=== PATIENT | male | born 1965 | race Caucasian/White ===

== ENCOUNTER 2020-06-01 08:56 | Inpatient (IN) | payer BC ==
[2020-06-01] VITALS (11 sets, daily range): BP systolic 96–109; BP diastolic 60–66
[~2020-06-01] VITALS: Ht 180.3 cm; Wt 109.1 kg
[~2020-06-01 08:56] MED LIST: FLO0.4C PO
[2020-06-01 10:03] LABS: BASOPHILS % (AUTO) 0.3 % (0-1); EOSINOPHILS % (AUTO) 0.2 % (0-6); HEMOGLOBIN 14.8 g/dl (14.0-17.9); LYMPHOCYTES # (AUTO) 1.1 X10'3 (1.1-4.8); LYMPHOCYTES % (AUTO) 17.7 % (21-51); MEAN CORPUSCULAR HEMOGLOBIN 29.9 PG (27.0-31.0); MEAN CORPUSCULAR HGB CONC 33.7 g/dL (33.0-36.5); MEAN CORPUSCULAR VOLUME 88.7 FL (78-98); MEAN PLATELET VOLUME 8.1 FL (7.4-10.4); MONOCYTES # (AUTO) 0.4 X10'3 (0-0.9); MONOCYTES % (AUTO) 7.2 % (2-12); NEUTROPHILS # (AUTO) 4.5 X10'3 (1.8-7.7); NEUTROPHILS % (AUTO) 74.6 % (42-75); PLATELET COUNT 184 X10'3 (140-440); RED BLOOD COUNT 4.96 X10'6 (4.70-6.10); RED CELL DISTRIBUTION WIDTH 14.1 % (11.5-14.5)
[2020-06-01 10:20] LABS: ALANINE AMINOTRANSFERASE 31 U/L (12-78); ALBUMIN 3.9 G/DL (3.4-5.0); ALBUMIN/GLOBULIN RATIO 1.2 (1.1-1.5); ALKALINE PHOSPHATASE 46 IU/L (46-116); ANION GAP 9 (8-16); ASPARTATE AMINO TRANSFERASE 90 U/L (10-37); BILIRUBIN,TOTAL 0.8 MG/DL (0.1-1.0); BLOOD UREA NITROGEN 18 MG/DL (7-18); BUN/CREATININE RATIO 19.4 (5.4-32.0); CALCIUM 9.2 MG/DL (8.5-10.1); CHLORIDE 104 MMOL/L (99-107); CREATININE 0.93 MG/DL (0.60-1.10); GLUCOSE 89 MG/DL (70-104); POTASSIUM 4.1 MMOL/L (3.5-5.1); SODIUM 141 MMOL/L (135-145); TOTAL CARBON DIOXIDE 28.4 MMOL/L (24-32); TOTAL PROTEIN 7.1 G/DL (6.4-8.2); eGFR 84 ML/MIN
[2020-06-01] MEDS ORDERED: nitroGLYCERIN 0.4mg SUBLingual tab SL PRN (10:45)
[2020-06-01] MEDS ORDERED: aspirin 81mg tab.chew PO ONE (10:45)
[2020-06-01] MEDS ORDERED: heparin 10,000 units/1 ML INJ IV ONE ×2 (10:50→11:00)
[2020-06-01] MEDS ORDERED: heparin 10,000 units/1 ML INJ IV PRN (10:50)
[2020-06-01] MEDS ORDERED: heparin 25,000 UNIT/250ml bag 250 ML IV SCH (10:50)
[2020-06-01 11:20] LABS: PARTIAL THROMBOPLASTIN TIME 28 SECONDS (22-32)
[2020-06-01] MEDS ORDERED: acetaminophen 325mg tablet PO PRN ×2 (11:50)
[2020-06-01] MEDS ORDERED: morphine 2 MG/ML inj. syringe IV PRN ×2 (11:50)
[2020-06-01] MEDS ORDERED: HYDROcodone/acetaminophen 10/325mg tab PO PRN (11:50)
[2020-06-01] MEDS ORDERED: mag hydrox/Alum hydrox/simeth 30ml oral suspension PO PRN (11:50)
[2020-06-01] MEDS ORDERED: ondansetron/PF 4mg/2ml inj IV PRN (11:50)
[2020-06-01] MEDS ORDERED: HYDROcodone/acetaminophen 5mg/325mg tablet PO PRN (11:50)
[2020-06-01] MEDS ORDERED: magnesium hydroxide 30ml (MOM) UD suspension PO PRN (11:50)
[2020-06-01] MEDS: nitroGLYCERIN 0.4mg/hour patch TD SCH (11:53)
[2020-06-01 12:43] LABS: HEMOGLOBIN A1C 5.1 % (4.5-6.2)
[2020-06-01] MEDS ORDERED: DESV25TA2 PO (12:48)
[2020-06-01] MEDS ORDERED: SERT100T10 PO (12:48)
[2020-06-01] MEDS ORDERED: CLON-568 PO (12:48)
[2020-06-01] MEDS ORDERED: ZOLP12.543 PO (12:48)
[2020-06-01] MEDS ORDERED: ZIPR20CA12 PO (12:48)
[2020-06-01] MEDS ORDERED: midazolam 2 mg/2 ml injection ONE (15:32)
[2020-06-01] MEDS ORDERED: fentaNYL/PF 50MCG/1 ML 2ML syringe ONE (15:33)
[2020-06-01] MEDS ORDERED: LIDOcaine 1% (10mg/ml)w/preservative injection 20ml MDV ONE (15:33)
[2020-06-01] MEDS ORDERED: heparin 1,000unit/ml 10ml vial 10 ML ONE (15:33)
[2020-06-01] MEDS ORDERED: heparin 1,000 UNITS/NS 500ml 500 ML ONE (15:33)
[2020-06-01] MEDS ORDERED: iohexol 350MG/ML 100ml bottle IV ONE ×2 (15:33→16:19)
[2020-06-01] MEDS ORDERED: nitroGLYCERIN-Tridil 50MG/D5W 250 ML IV ONE (15:33)
--- NOTE | 2020-06-01 15:34 | NUR ---
Patient in room ED 13. I have received report from Dilcia CASTILLO and had the opportunity to ask questions and assume patient care.
[2020-06-01] MEDS ORDERED: ticagrelor 90mg tablet ONE (16:29)
--- NOTE | 2020-06-01 17:03 | NUR ---
patient's vitals are stable, right wrist has sensation, cap refill is less than 3 seconds, right hand is warm, bilat radial pulses are strong , patient is alert, oriented and appropriate
[2020-06-01] MEDS ORDERED: OXAZEpam 15mg capsule PO PRN (17:10)
[2020-06-01] MEDS ORDERED: proCHLORperazine 10 MG/2 ml inj IV PRN (17:10)
--- NOTE | 2020-06-01 18:00 | NUR ---
Patient in room PCU 3023. I have received report from uyen handley and had the opportunity to ask questions and assume patient care.
[2020-06-01] MEDS: metoprolol tartrate 25mg tablet PO SCH (20:14)
[2020-06-01] MEDS: ticagrelor 90mg tablet PO SCH (20:14)
--- NOTE | 2020-06-01 22:15 | NUR ---
patient had consitant critical troponin that is now trending down post catheterization. radial band is dc at this time as well
--- NOTE | 2020-06-02 00:56 | NUR ---
PAGER ID: [phone] MESSAGE: [id number] BEKA SALDAÑA PATIENT FROM INFORMATION SPECIALIST, MED REC NEEDS TO BE FINALIZED THANKS DARIUS CASTILLO [phone]
[2020-06-02 02:00] VITALS: BP 102/58
[2020-06-02 06:18] LABS: BASOPHILS % (AUTO) 0.3 % (0-1); EOSINOPHILS % (AUTO) 0.2 % (0-6); HEMATOCRIT 42.2 % (42.0-52.0); HEMOGLOBIN 14.4 g/dl (14.0-17.9); LYMPHOCYTES # (AUTO) 1.1 X10'3 (1.1-4.8); LYMPHOCYTES % (AUTO) 15.7 % (21-51); MEAN CORPUSCULAR HEMOGLOBIN 30.2 PG (27.0-31.0); MEAN CORPUSCULAR HGB CONC 34.1 g/dL (33.0-36.5); MEAN CORPUSCULAR VOLUME 88.7 FL (78-98); MEAN PLATELET VOLUME 8.4 FL (7.4-10.4); MONOCYTES # (AUTO) 0.6 X10'3 (0-0.9); NEUTROPHILS # (AUTO) 5.4 X10'3 (1.8-7.7); NEUTROPHILS % (AUTO) 74.8 % (42-75); PLATELET COUNT 160 X10'3 (140-440); RED BLOOD COUNT 4.76 X10'6 (4.70-6.10); RED CELL DISTRIBUTION WIDTH 14.2 % (11.5-14.5); WHITE BLOOD COUNT 7.2 X10'3 (4.5-11.0)
--- NOTE | 2020-06-02 06:25 | NUR ---
Problems reprioritized. Patient report given, questions answered & plan of care reviewed with Kayleigh RN.
[2020-06-02 06:41] LABS: ALBUMIN 3.6 G/DL (3.4-5.0); ANION GAP 10 (8-16); BLOOD UREA NITROGEN 14 MG/DL (7-18); BUN/CREATININE RATIO 16.1 (5.4-32.0); CALCIUM 8.7 MG/DL (8.5-10.1); CHLORIDE 104 MMOL/L (99-107); CHOL/HDL RATIO 2.9 (0.00-4.99); CHOLESTEROL 200 MG/DL (0-200); CREATININE 0.87 MG/DL (0.60-1.10); GLUCOSE 89 MG/DL (70-104); HDL CHOLESTEROL 69 MG/DL (35-60); LDL CHOLESTEROL 114 MG/DL (50-100); POTASSIUM 3.8 MMOL/L (3.5-5.1); SODIUM 139 MMOL/L (135-145); TOTAL CARBON DIOXIDE 24.7 MMOL/L (24-32); TRIGLYCERIDES 78 MG/DL (20-135); eGFR > 90 ML/MIN
[2020-06-02 07:34] VITALS: BP 114/66
[2020-06-02] MEDS ORDERED: ziprasidone 20mg capsule PO SCH (08:00)
[2020-06-02] MEDS: nitroGLYCERIN 0.4mg/hour patch TD SCH (08:00)
[2020-06-02] MEDS ORDERED: aspirin 81mg tablet.DR PO SCH (08:00)
[2020-06-02] MEDS ORDERED: nitroGLYCERIN 0.4mg/hour patch TD SCH (08:00)
[2020-06-02 08:45] VITALS: BP_SYST 114
[2020-06-02] MEDS: metoprolol tartrate 25mg tablet PO SCH (08:45)
[2020-06-02] MEDS: ticagrelor 90mg tablet PO SCH (08:45)
[2020-06-02] MEDS ORDERED: TICA90TA PO (09:05)
[2020-06-02] MEDS ORDERED: ASPI-1071 PO (09:05)
[2020-06-02] MEDS ORDERED: venlafaxine 25mg tablet PO SCH (09:13)
[2020-06-02] MEDS ORDERED: zolpidem 5mg tablet PO PRN (09:15)
[2020-06-02] MEDS ORDERED: sertraline 50mg tablet PO SCH (09:15)
[2020-06-02] MEDS ORDERED: ATOR40TA71 PO (09:50)
--- NOTE | 2020-06-02 11:12 | NUR ---
pt dc home in zero distress. ekg completed and on chart. IV have been dc with tip in tact. Gave pt coupon for Brilinta. DC instruction explained to pt in full, pt verbalized understanding of dc instructions.
[2020-06-02] MEDS ORDERED: clonazePAM 1mg tablet PO SCH (20:00)
[2020-06-03] MEDS ORDERED: DESVENLAFAXINE SUCCINATE PO SCH (08:00)
== END 2020-06-02 12:08 | disposition home or self-care (01) | DRG 247 ==
LOC: ER 08:57 → ED HOLD 11:49 → PCU 3S 16:38
PROVIDERS: ADMIT Internal Medicine; ATTEND Internal Medicine
PROC: 4A023N7 Measurement of Cardiac Sampling and Pressure, Left Heart, Percutaneous Approach (ICD-10-PCS; principal; 2020-06-01)
PROC: 027135Z Dilation of Coronary Artery, Two Arteries with Two Drug-eluting Intraluminal Devices, Percutaneous Approach (ICD-10-PCS; 2020-06-01)
PROC: B2111ZZ Fluoroscopy of Multiple Coronary Arteries using Low Osmolar Contrast (ICD-10-PCS; 2020-06-01)
PROC: B2151ZZ Fluoroscopy of Left Heart using Low Osmolar Contrast (ICD-10-PCS; 2020-06-01)
DX: I21.4 Non-ST elevation (NSTEMI) myocardial infarction (principal); F32.9 Major depressive disorder, single episode, unspecified; F41.9 Anxiety disorder, unspecified; I10 Essential (primary) hypertension; E78.5 Hyperlipidemia, unspecified; I25.9 Chronic ischemic heart disease, unspecified; N40.0 Benign prostatic hyperplasia without lower urinary tract symptoms; Z79.02 Long term (current) use of antithrombotics/antiplatelets; Z79.82 Long term (current) use of aspirin; Z79.899 Other long term (current) drug therapy; Z82.49 Family history of ischemic heart disease and other diseases of the circulatory system; Z87.442 Personal history of urinary calculi; Z98.84 Bariatric surgery status
CPT/HCPCS: 93306; 93458; C9600; C9601; 36415; 71045; 80048; 80053; 80061; 83036; 83880; 84484; 85025; 85610; 85730; 87081; 93005; 99152; 99153; A4620; A5120; A6258; C1725; C1751; C1769; C1874; C1894; G0378; J1644; J2001; J2250; J3010; J3490; Q9967

== ENCOUNTER 2020-07-16 22:33 | Inpatient (IN) | payer BC ==
[~2020-07-16] VITALS: Ht 180.3 cm; Wt 104.0 kg
[~2020-07-16 22:33] MED LIST changes: +ASPI-1071 PO; +ATOR40TA71 PO; +CLON-568 PO; +DESV25TA2 PO; -FLO0.4C PO; +SERT-434 PO; +TICA90TA PO; +ZIPR20CA12 PO; +ZOLP12.543 PO
[2020-07-16 23:12] LABS: BASOPHILS % (AUTO) 0.3 % (0-1); EOSINOPHILS % (AUTO) 0.2 % (0-6); HEMATOCRIT 44.6 % (42.0-52.0); HEMOGLOBIN 14.9 g/dl (14.0-17.9); LYMPHOCYTES # (AUTO) 1.2 X10'3 (1.1-4.8); LYMPHOCYTES % (AUTO) 14.1 % (21-51); MEAN CORPUSCULAR HEMOGLOBIN 29.8 PG (27.0-31.0); MEAN CORPUSCULAR HGB CONC 33.4 g/dL (33.0-36.5); MEAN CORPUSCULAR VOLUME 89.3 FL (78-98); MEAN PLATELET VOLUME 8.7 FL (7.4-10.4); MONOCYTES # (AUTO) 0.8 X10'3 (0-0.9); MONOCYTES % (AUTO) 9.2 % (2-12); NEUTROPHILS # (AUTO) 6.5 X10'3 (1.8-7.7); NEUTROPHILS % (AUTO) 76.2 % (42-75); PLATELET COUNT 163 X10'3 (140-440); RED BLOOD COUNT 4.99 X10'6 (4.70-6.10); WHITE BLOOD COUNT 8.6 X10'3 (4.5-11.0)
[2020-07-16 23:25] LABS: ALANINE AMINOTRANSFERASE 27 U/L (12-78); ALBUMIN 3.7 G/DL (3.4-5.0); ALKALINE PHOSPHATASE 57 IU/L (46-116); ANION GAP 9 (8-16); ASPARTATE AMINO TRANSFERASE 27 U/L (10-37); BILIRUBIN,TOTAL 1.1 MG/DL (0.1-1.0); BLOOD UREA NITROGEN 11 MG/DL (7-18); BUN/CREATININE RATIO 10.6 (5.4-32.0); CALCIUM 9.2 MG/DL (8.5-10.1); CHLORIDE 103 MMOL/L (99-107); CREATININE 1.04 MG/DL (0.60-1.10); GLUCOSE 111 MG/DL (70-104); LIPASE 77 U/L (73-393); POTASSIUM 3.5 MMOL/L (3.5-5.1); SODIUM 138 MMOL/L (135-145); TOTAL CARBON DIOXIDE 26.3 MMOL/L (24-32); TOTAL PROTEIN 7.3 G/DL (6.4-8.2); eGFR 74 ML/MIN
[2020-07-16 23:28] LABS: CLARITY,URINE CLEAR (Clear); COLOR,URINE YELLOW (Yellow); GLUCOSE, URINE NEGATIVE (Neg); KETONES,URINE 15 mg/dl (Neg); LEUKOCYTE ESTERASE ,URINE NEGATIVE (Neg); NITRITES, URINE NEGATIVE (Neg); OCCULT BLOOD,URINE NEGATIVE (Neg); PROTEIN,URINE NEGATIVE (Neg); UA COLLECTION TYPE CLN CATCH MIDSTREAM; UROBILINOGEN,URINE 0.2 E.U/dL (0.2-1.0)
[2020-07-17] MEDS ORDERED: ondansetron/PF 4mg/2ml inj IV ONE ×2 (00:20→02:05)
[2020-07-17] MEDS ORDERED: mag hydrox/Alum hydrox/simeth 30ml oral suspension PO ONE (00:20)
[2020-07-17] MEDS ORDERED: famotidine/PF 10 mg/ml inj IV ONE (00:20)
[2020-07-17] MEDS ORDERED: LIDOcaine Viscous 15ml cup MM ONE (00:20)
[2020-07-17] MEDS ORDERED: morphine 4 MG/ML inj SYRINge IV ONE ×3 (01:00→04:10)
[2020-07-17] MEDS ORDERED: piperacillin/tazo 3.375gm/50ml 50 ML IV ONE (04:05)
[2020-07-17] MEDS ORDERED: PANT40TA54 PO (04:30)
[2020-07-17] MEDS ORDERED: GABA-530 PO (04:30)
[2020-07-17] MEDS ORDERED: potassium Cl 40MEQ/1/2NS 520ml 520 ML IV PRN ×2 (04:40)
[2020-07-17] MEDS: normal saline 1000ml 1,000 ML IV SCH ×2 (04:40→14:40)
[2020-07-17] MEDS ORDERED: zolpidem 5mg tablet PO PRN (04:50)
[2020-07-17] MEDS: metoclopramide 5 mg/ml inj IV PRN ×2 (06:41→13:05)
[2020-07-17] MEDS: morphine 2 MG/ML inj. syringe IV PRN ×6 (06:41→23:31)
[2020-07-17] MEDS: atorvastatin 20mg tablet PO SCH (08:00)
[2020-07-17] MEDS: pantoprazole 40mg Tablet.DR PO SCH (08:00)
[2020-07-17] MEDS ORDERED: DESVENLAFAXINE SUCCINATE PO SCH (08:00)
[2020-07-17] MEDS: gabapentin 100mg capsule PO SCH ×3 (08:00→20:05)
[2020-07-17] MEDS: ziprasidone 20mg capsule PO SCH (08:00)
[2020-07-17] MEDS: clonazePAM 1mg tablet PO SCH ×2 (08:00→20:05)
[2020-07-17] MEDS: sertraline 50mg tablet PO SCH ×2 (08:00→20:05)
[2020-07-17] MEDS: K and/or MAG REPLACEMENT MC SCH ×2 (08:00→20:00)
[2020-07-17] MEDS: aspirin 81mg tablet.DR PO SCH (08:00)
[2020-07-17] MEDS ORDERED: BUPIVAcaine/PF 2.5 mg/ml (0.25%) 30ml vial ONE (08:38)
--- NOTE | 2020-07-17 08:53 | NUR ---
Called report to Katty in Recovery.
[2020-07-17] MEDS: ondansetron/PF 4mg/2ml inj IV PRN ×3 (10:09→20:23)
--- NOTE | 2020-07-17 10:50 | NUR ---
Pt is resting quietly with eyes closed. Respirations unlabored. NAD
--- NOTE | 2020-07-17 10:54 | NUR ---
Tried to call report to PCU. Told the RN is finishing a med pass and she will call me right back.
--- NOTE | 2020-07-17 11:05 | NUR ---
Tried to call and get report, nurse on break, will call me when she gets back in 10 minutes.
--- NOTE | 2020-07-17 11:20 | NUR ---
Patient in room ED 8. I have received report from ANNA Blackmon and had the opportunity to ask questions and awaiting pt's arrival.
[2020-07-17 11:30] VITALS: BP 160/86
--- NOTE | 2020-07-17 11:33 | NUR ---
Patient arrived from ED, ambulated from wheelchair to bed with standby assist. Alert and oriented to room, call light within reach, BLL, SRx2, non skid socks on. First set of vitals complete, MRSA swab collected, tele monitor placed on patient. All pt needs met at this time.
[2020-07-17] MEDS: piperacillin/tazo 3.375gm/50ml 50 ML IV SCH ×2 (13:45→20:14)
[2020-07-17 15:00] VITALS: BP 142/85
[2020-07-17 18:00] VITALS: BP 143/84
--- NOTE | 2020-07-17 18:30 | NUR ---
Patient in room PCU 3017. I have received report from Florence Dominique RN and had the opportunity to ask questions and assume patient care.
--- NOTE | 2020-07-17 18:41 | NUR ---
Problems reprioritized. Patient report given, questions answered & plan of care reviewed with ANNA Anand. Pt sitting up in bed resting comfortably at change of shift. All pt needs met at this time.
[2020-07-17 19:00] VITALS: BP 111/66
[2020-07-17] MEDS: ticagrelor 90mg tablet PO SCH (20:06)
[2020-07-17] MEDS: venlafaxine 25mg tablet PO SCH (20:12)
[2020-07-17 22:00] VITALS: BP 118/85
[2020-07-17] MEDS ORDERED: acetaminophen 325mg tablet PO ONE (23:00)
[2020-07-18] VITALS (21 sets, daily range): BP systolic 111–153; BP diastolic 69–85
[2020-07-18] MEDS: normal saline 1000ml 1,000 ML IV SCH ×3 (01:30→20:28)
[2020-07-18] MEDS: piperacillin/tazo 3.375gm/50ml 50 ML IV SCH ×3 (03:31→23:29)
[2020-07-18] MEDS: morphine 2 MG/ML inj. syringe IV PRN (04:57)
--- NOTE | 2020-07-18 06:19 | NUR ---
Problems reprioritized. Patient report given, questions answered & plan of care reviewed with ANNA Anand.
--- NOTE | 2020-07-18 06:19 | NUR ---
Patient in room PCU 3008. I have received report from Kika CATSILLO and had the opportunity to ask questions and assume patient care. Pt resting in bed at this time, offers no complaints, will continue to monitor.
--- NOTE | 2020-07-18 06:24 | NUR ---
Problems reprioritized. Patient report given, questions answered & plan of care reviewed with Emily CASTILLO.
[2020-07-18 06:42] LABS: BASOPHILS % (AUTO) 0.1 % (0-1); EOSINOPHILS % (AUTO) 0.2 % (0-6); HEMATOCRIT 44.4 % (42.0-52.0); HEMOGLOBIN 14.8 g/dl (14.0-17.9); LYMPHOCYTES # (AUTO) 0.8 X10'3 (1.1-4.8); LYMPHOCYTES % (AUTO) 6.9 % (21-51); MEAN CORPUSCULAR HEMOGLOBIN 29.9 PG (27.0-31.0); MEAN CORPUSCULAR HGB CONC 33.4 g/dL (33.0-36.5); MEAN CORPUSCULAR VOLUME 89.5 FL (78-98); MEAN PLATELET VOLUME 8.7 FL (7.4-10.4); MONOCYTES # (AUTO) 1.1 X10'3 (0-0.9); MONOCYTES % (AUTO) 9.6 % (2-12); NEUTROPHILS # (AUTO) 9.9 X10'3 (1.8-7.7); NEUTROPHILS % (AUTO) 83.2 % (42-75); PLATELET COUNT 180 X10'3 (140-440); RED BLOOD COUNT 4.96 X10'6 (4.70-6.10); RED CELL DISTRIBUTION WIDTH 13.9 % (11.5-14.5)
[2020-07-18 06:56] LABS: ALANINE AMINOTRANSFERASE 138 U/L (12-78); ALBUMIN 3.1 G/DL (3.4-5.0); ALBUMIN/GLOBULIN RATIO 0.8 (1.1-1.5); ALKALINE PHOSPHATASE 123 IU/L (46-116); ANION GAP 10 (8-16); ASPARTATE AMINO TRANSFERASE 147 U/L (10-37); BILIRUBIN,TOTAL 1.4 MG/DL (0.1-1.0); BLOOD UREA NITROGEN 12 MG/DL (7-18); BUN/CREATININE RATIO 12.4 (5.4-32.0); CHLORIDE 103 MMOL/L (99-107); CREATININE 0.97 MG/DL (0.60-1.10); GLUCOSE 102 MG/DL (70-104); POTASSIUM 4.1 MMOL/L (3.5-5.1); SODIUM 139 MMOL/L (135-145); TOTAL CARBON DIOXIDE 26.5 MMOL/L (24-32); eGFR 80 ML/MIN
[2020-07-18] MEDS: aspirin 81mg tablet.DR PO SCH (08:00)
[2020-07-18] MEDS: ticagrelor 90mg tablet PO SCH ×2 (08:00→20:24)
[2020-07-18] MEDS: K and/or MAG REPLACEMENT MC SCH ×2 (08:00→20:00)
--- NOTE | 2020-07-18 08:10 | NUR ---
SPOKE WITH OR AND WAS INSTRUCTED TO HOLD THE BRILINTA AND ASPIRIN FOR THIS AM THE PT IS GOING TO SURGERY.
[2020-07-18] MEDS: venlafaxine 25mg tablet PO SCH ×3 (08:17→20:24)
[2020-07-18] MEDS: gabapentin 100mg capsule PO SCH ×3 (08:18→20:24)
[2020-07-18] MEDS: atorvastatin 20mg tablet PO SCH (08:18)
[2020-07-18] MEDS: pantoprazole 40mg Tablet.DR PO SCH (08:18)
[2020-07-18] MEDS: sertraline 50mg tablet PO SCH ×2 (08:19→20:24)
[2020-07-18] MEDS: ziprasidone 20mg capsule PO SCH (08:19)
[2020-07-18] MEDS: clonazePAM 1mg tablet PO SCH ×2 (08:19→20:24)
[2020-07-18] MEDS ORDERED: sevoflurane 250ml liquid IH ONE (11:25)
[2020-07-18] MEDS ORDERED: meperidine/PF 25mg/ml syringe IV PRN ×2 (11:30)
[2020-07-18] MEDS ORDERED: morphine 4 MG/ML inj SYRINge IV PRN (11:30)
[2020-07-18] MEDS ORDERED: midazolam 1 mg/ML 2ml injection ONE (11:30)
[2020-07-18] MEDS ORDERED: fentaNYL/PF 50MCG/1 ML 2ML syringe ONE ×2 (11:30→11:50)
[2020-07-18] MEDS ORDERED: proCHLORperazine 10 MG/2 ml inj IV PRN (11:30)
[2020-07-18] MEDS ORDERED: ringers solution, lacted 1,000 ML IV SCH (11:30)
[2020-07-18] MEDS ORDERED: ondansetron/PF 4mg/2ml inj IV PRN (11:30)
[2020-07-18] MEDS ORDERED: morphine 2 MG/ML inj. syringe IV PRN (11:30)
[2020-07-18] MEDS ORDERED: propofol inj 20 ML IV ONE (11:32)
[2020-07-18] MEDS ORDERED: LIDOcaine 2% (20mg/ml) 5ml vial ONE (11:32)
[2020-07-18] MEDS ORDERED: rocuronium 10mg/ml inj IV ONE (11:32)
[2020-07-18] MEDS ORDERED: glycopyrrolate 0.2mg/ml inj ONE (12:37)
[2020-07-18] MEDS ORDERED: neostigmine methylsulfate 1 MG/ML 10ml vial ONE (12:37)
[2020-07-18] MEDS ORDERED: dexamethasone sod phosphate 4mg/ml inj. ONE (12:37)
[2020-07-18] MEDS ORDERED: ondansetron/PF 4mg/2ml inj ONE (12:37)
--- NOTE | 2020-07-18 13:35 | NUR ---
Received from OR via , accompanied by Anesthesiologist DR SHULTZ and report given by Anesthesiolgist. PT IS SLEEPING BUT MOANING WITH PAIN. DEMEROL 25MG GIVEN FOR PAIN, SCDS, JUWAN DRAIN WITH SANQ DISCHARGE, ISLAND DRESSING AROUND JUWAN, PIV RIGHT HAND 20G WITH LR @ 100ML/HR, SKIN WARM AND PINK, VSS.
[2020-07-18] MEDS: meperidine/PF 25mg/ml syringe IV PRN ×2 (14:32→14:52)
--- NOTE | 2020-07-18 14:40 | NUR ---
PER PATIENT REQUEST, CALLED WITH UPDATE REGARDING SURGERY.
--- NOTE | 2020-07-18 14:41 | NUR ---
Report called to receiving nurse. Transferred via BED Belongings . Special Issues communicated to receiving nurse. PT IS SLEEPY BUT WAKES EASILY. SKIN WARM AND PINK, VSS, MOD PAIN CONTROLLED WITH DEMEROL, ISLAND DRESSING ON ABD CD, JUWAN DRAIN WITH MIN SANQ DISCHARGE, SCD'S, PIV PATENT, GABINO ICE CHIPS, PT MEETS DISCHARGE CRITERIA.
--- NOTE | 2020-07-18 18:06 | NUR ---
Orientee documentation: I have reviewed and agree with interventions, assessments performed and documented by Gifty CASTILLO. [place]ee Medication Administration: For this medication-pass time frame, medication were reviewed, dispensed, administered and documented per hospital policy by Gifty CASTILLO.
--- NOTE | 2020-07-18 18:10 | NUR ---
Problems reprioritized. Patient report given, questions answered & plan of care reviewed with Ferny CASTILLO.
[2020-07-18] MEDS: HYDROcodone/acetaminophen 10/325mg tab PO PRN (21:45)
[2020-07-19 02:00] VITALS: BP 117/67
[2020-07-19] MEDS: HYDROcodone/acetaminophen 10/325mg tab PO PRN ×3 (02:05→20:00)
[2020-07-19 06:00] VITALS: BP 115/66
--- NOTE | 2020-07-19 06:32 | NUR ---
Patient in room PCU 3008. I have received report from Ferny CASTILLO and had the opportunity to ask questions and assume patient care.
--- NOTE | 2020-07-19 06:33 | NUR ---
Problems reprioritized. Patient report given, questions answered & plan of care reviewed with HT. Addendum: 07/19/20 at 0633 by Clay Wright RN Amended: Links added.
[2020-07-19] MEDS: normal saline 1000ml 1,000 ML IV SCH ×2 (06:49→16:49)
[2020-07-19 07:00] LABS: BASOPHILS % (AUTO) 0 % (0-1); EOSINOPHILS % (AUTO) 0 % (0-6); HEMATOCRIT 37.2 % (42.0-52.0); HEMOGLOBIN 12.5 g/dl (14.0-17.9); LYMPHOCYTES # (AUTO) 0.7 X10'3 (1.1-4.8); LYMPHOCYTES % (AUTO) 6.1 % (21-51); MEAN CORPUSCULAR HEMOGLOBIN 29.7 PG (27.0-31.0); MEAN CORPUSCULAR HGB CONC 33.6 g/dL (33.0-36.5); MEAN CORPUSCULAR VOLUME 88.4 FL (78-98); MEAN PLATELET VOLUME 8.9 FL (7.4-10.4); MONOCYTES # (AUTO) 0.7 X10'3 (0-0.9); MONOCYTES % (AUTO) 6.5 % (2-12); NEUTROPHILS % (AUTO) 87.4 % (42-75); PLATELET COUNT 182 X10'3 (140-440); RED BLOOD COUNT 4.21 X10'6 (4.70-6.10); WHITE BLOOD COUNT 11.4 X10'3 (4.5-11.0)
[2020-07-19 07:25] LABS: ALANINE AMINOTRANSFERASE 108 U/L (12-78); ALBUMIN 2.6 G/DL (3.4-5.0); ALBUMIN/GLOBULIN RATIO 0.7 (1.1-1.5); ALKALINE PHOSPHATASE 104 IU/L (46-116); ANION GAP 11 (8-16); ASPARTATE AMINO TRANSFERASE 98 U/L (10-37); BILIRUBIN,TOTAL 0.7 MG/DL (0.1-1.0); BLOOD UREA NITROGEN 16 MG/DL (7-18); BUN/CREATININE RATIO 19.3 (5.4-32.0); CHLORIDE 105 MMOL/L (99-107); CREATININE 0.83 MG/DL (0.60-1.10); GLUCOSE 109 MG/DL (70-104); POTASSIUM 4.7 MMOL/L (3.5-5.1); SODIUM 143 MMOL/L (135-145); TOTAL CARBON DIOXIDE 26.6 MMOL/L (24-32); TOTAL PROTEIN 6.2 G/DL (6.4-8.2); eGFR > 90 ML/MIN
[2020-07-19] MEDS: piperacillin/tazo 3.375gm/50ml 50 ML IV SCH ×3 (07:36→23:55)
[2020-07-19] MEDS: ticagrelor 90mg tablet PO SCH ×2 (07:38→19:58)
[2020-07-19] MEDS: venlafaxine 25mg tablet PO SCH ×3 (07:38→19:58)
[2020-07-19] MEDS: aspirin 81mg tablet.DR PO SCH (07:38)
[2020-07-19] MEDS: gabapentin 100mg capsule PO SCH ×3 (07:39→19:58)
[2020-07-19] MEDS: atorvastatin 20mg tablet PO SCH (07:39)
[2020-07-19] MEDS: ziprasidone 20mg capsule PO SCH (07:39)
[2020-07-19] MEDS: pantoprazole 40mg Tablet.DR PO SCH (07:40)
[2020-07-19] MEDS: sertraline 50mg tablet PO SCH ×2 (07:40→20:01)
[2020-07-19] MEDS: clonazePAM 1mg tablet PO SCH ×2 (07:40→19:57)
[2020-07-19] MEDS: K and/or MAG REPLACEMENT MC SCH ×2 (08:00→20:00)
[2020-07-19 11:00] VITALS: BP 108/64
[2020-07-19 15:00] VITALS: BP 116/70
[2020-07-19] MEDS ORDERED: magnesium hydroxide 30ml (MOM) UD suspension PO ONE (16:45)
[2020-07-19 18:00] VITALS: BP 136/80
--- NOTE | 2020-07-19 18:24 | NUR ---
Problems reprioritized. Patient report given, questions answered & plan of care reviewed with Arabella CASTILLO
--- NOTE | 2020-07-19 18:25 | NUR ---
Orientee documentation: I have reviewed and agree with interventions, assessments performed and documented by Gifty CASTILLO .Orietnexenia Medication Administration: For this medication-pass time frame, medication were reviewed, dispensed, administered and documented per hospital policy by Gifty CASTILLO .
--- NOTE | 2020-07-19 18:27 | NUR ---
Patient in room PCU 3017. I have received report from Emily CASTILLO and Gifty RN and had the opportunity to ask questions and assume patient care.
[2020-07-19] MEDS: lactobacillus rhamnosus 10,000 MMU CELLS/CAPSULE PO SCH (19:58)
[2020-07-19 22:00] VITALS: BP 140/78
[2020-07-20] MEDS: HYDROcodone/acetaminophen 10/325mg tab PO PRN ×3 (01:10→12:27)
[2020-07-20] MEDS: normal saline 1000ml 1,000 ML IV SCH ×2 (02:19→12:40)
[2020-07-20 06:37] LABS: BASOPHILS % (AUTO) 0.2 % (0-1); EOSINOPHILS # (AUTO) 0.1 X10'3 (0-0.9); EOSINOPHILS % (AUTO) 0.7 % (0-6); HEMATOCRIT 35.6 % (42.0-52.0); LYMPHOCYTES # (AUTO) 1.1 X10'3 (1.1-4.8); LYMPHOCYTES % (AUTO) 16.2 % (21-51); MEAN CORPUSCULAR HEMOGLOBIN 29.9 PG (27.0-31.0); MEAN CORPUSCULAR HGB CONC 33.8 g/dL (33.0-36.5); MEAN CORPUSCULAR VOLUME 88.6 FL (78-98); MEAN PLATELET VOLUME 8.4 FL (7.4-10.4); MONOCYTES # (AUTO) 0.5 X10'3 (0-0.9); MONOCYTES % (AUTO) 7.4 % (2-12); NEUTROPHILS # (AUTO) 5.3 X10'3 (1.8-7.7); NEUTROPHILS % (AUTO) 75.5 % (42-75); PLATELET COUNT 177 X10'3 (140-440); RED BLOOD COUNT 4.01 X10'6 (4.70-6.10); RED CELL DISTRIBUTION WIDTH 13.9 % (11.5-14.5); WHITE BLOOD COUNT 7.1 X10'3 (4.5-11.0)
--- NOTE | 2020-07-20 06:37 | NUR ---
Problems reprioritized. Patient report given, questions answered & plan of care reviewed with Stephany CASTILLO.
[2020-07-20 07:00] LABS: ALANINE AMINOTRANSFERASE 89 U/L (12-78); ALBUMIN 2.5 G/DL (3.4-5.0); ALBUMIN/GLOBULIN RATIO 0.7 (1.1-1.5); ALKALINE PHOSPHATASE 93 IU/L (46-116); ANION GAP 8 (8-16); ASPARTATE AMINO TRANSFERASE 66 U/L (10-37); BILIRUBIN,TOTAL 0.5 MG/DL (0.1-1.0); BLOOD UREA NITROGEN 16 MG/DL (7-18); CALCIUM 8.5 MG/DL (8.5-10.1); CHLORIDE 108 MMOL/L (99-107); CREATININE 0.89 MG/DL (0.60-1.10); GLUCOSE 84 MG/DL (70-104); POTASSIUM 3.7 MMOL/L (3.5-5.1); SODIUM 143 MMOL/L (135-145); TOTAL CARBON DIOXIDE 27.1 MMOL/L (24-32); TOTAL PROTEIN 6.1 G/DL (6.4-8.2); eGFR 88 ML/MIN
[2020-07-20 07:01] VITALS: BP 129/80
[2020-07-20] MEDS: K and/or MAG REPLACEMENT MC SCH (08:00)
[2020-07-20] MEDS ORDERED: HYDR-3972 PO (08:30)
[2020-07-20] MEDS ORDERED: AMOX-580 PO (08:30)
[2020-07-20] MEDS: aspirin 81mg tablet.DR PO SCH (09:04)
[2020-07-20] MEDS: atorvastatin 20mg tablet PO SCH (09:04)
[2020-07-20] MEDS: ziprasidone 20mg capsule PO SCH (09:05)
[2020-07-20] MEDS: pantoprazole 40mg Tablet.DR PO SCH (09:05)
[2020-07-20] MEDS: ticagrelor 90mg tablet PO SCH (09:05)
[2020-07-20] MEDS: piperacillin/tazo 3.375gm/50ml 50 ML IV SCH ×2 (09:05→16:00)
[2020-07-20] MEDS: venlafaxine 25mg tablet PO SCH ×2 (09:06→12:26)
[2020-07-20] MEDS: lactobacillus rhamnosus 10,000 MMU CELLS/CAPSULE PO SCH (09:06)
[2020-07-20] MEDS: clonazePAM 1mg tablet PO SCH (09:06)
[2020-07-20] MEDS: sertraline 50mg tablet PO SCH (09:06)
[2020-07-20] MEDS: gabapentin 100mg capsule PO SCH ×2 (09:07→12:26)
[2020-07-20] MEDS ORDERED: pneumococcal 23-VAL P-sac vacc 25 mcg/0.5ml vial IMVAC ONE (10:00)
[2020-07-20] MEDS ORDERED: FLU VACC QS2020-21(6MOS UP)/PF 60 MCG/0.5 ML SYRINGE IMVAC ONE (10:00)
[2020-07-20 11:13] VITALS: BP 129/72
--- NOTE | 2020-07-20 11:15 | NUR ---
Received stack of paperwork from [facility] listing multiple minor and major interactions between pt's medications. Called [facility]. Spoke with Toan - pharmacist. States he wants MD to review list of interactions and then call him before he can approve medications for discharge. Notified MD Pérez by cell phone. states he will come to floor shortly.
--- NOTE | 2020-07-20 12:29 | NUR ---
Discontinued JUWAN drain. Patient tolerated well. Applied steristrips and optifoam. Pain medication administered immediately after.
[2020-07-20] MEDS ORDERED: ondansetron 4mg rapidly disintigrating tab PO PRN (13:20)
--- NOTE | 2020-07-20 13:56 | NUR ---
Called hospitalist to remind him that pharmacy is requiring verification of discharge medication orders r/t major interactions with medications. MD stated "talk to your recharger. there are no interactions from the medications I ordered for the pt. there are only interactions from the medications that the psychiatric doctor ordered and that needs to be addressed with the psychiatrist." Spoke with pharmacist at [facility] again and [facility] pharmacist refusing to fill discharge medications. Provided pharmacist with MD contact, after discussing with quantitative analyst developer. Will contact pharmacist to see is issue has been solved at a later time.
[2020-07-20 15:00] VITALS: BP 108/67
--- NOTE | 2020-07-20 15:00 | NUR ---
Pt. knows to p/u medications at preferred pharmacy.
--- NOTE | 2020-07-20 15:00 | NUR ---
Discharge paperwork and medications discussed with patient. Discussed possible interactions and to further discuss with his psychiatrist. Discussed possible [facility] [place] with pt. Discussed f/u appointments needed with PCP and Gustavo. Contact address and phone number provided for Rick to pt. Home meds returned from pharmacy storage to patient. iv DC'd, cannula intact, no s/sx bleeding noted. JUWAN drain DC'd already. Tele removed and returned. Pt. dressed himself and gathered his belongings to take with him. Called his for a ride. Gave education on post-op care, incision care, and post-op restrictions. Pt. had many opportunities to ask questions but had none. Advise not to drive. Escorted in a w/c by a staff member downstairs to his 's vehicle to discharge home.
--- NOTE | 2020-07-20 15:33 | NUR ---
Hospitalist did call pharmacist and verification that it was ok to discharge medications and theat medications will be filled was given to RN.
--- NOTE | 2020-07-21 09:41 | NUR ---
CASE MANAGEMENT DISCHARGE FOLLOW UP: T/c to pt, no answer, left message requesting callback. Addendum: 07/21/20 at 1043 by Gudelia De La Cruz RN [phone] Received voicemail from patient. Returned call. Pt reports that he is feeling a little better, lost his voice a little. Voice is harsh but becomes easier to understand the more patient talks. Pt denies CP, SOB, fevers/chills, s/sx of infection, bleeding. States pain under control with [place]. States that yesterday he had some pain in his R should upon inspiration, however it is gone now. Verbalizes understanding of s/sx requiring further evaluation/emergent assistance. Verbalizes understanding of new and current medications. Verbalizes compliance with MD discharge instructions. Verbalizes understanding of the importance in making/keeping follow-up appointments, has f/u appointment scheduled with PCP. Will call to schedule f/u appointment with Dr Leung. Upon pt inquiry, advised pt to ask Dr Leung about when it is safe to return to work, pt verbalizes understanding. States no further questions/concerns at this time.
== END 2020-07-20 16:15 | disposition home or self-care (01) | DRG 419 ==
LOC: ER 22:34 → ED HOLD 07-17 04:38 → PCU 3S 07-17 11:38 → PACU 07-18 11:46 → PCU 3S 07-18 14:44
PROVIDERS: ADMIT Internal Medicine; ATTEND Internal Medicine
PROC: 0FT44ZZ Resection of Gallbladder, Percutaneous Endoscopic Approach (ICD-10-PCS; principal; 2020-07-18 11:25)
PROC: 3E0234Z Introduction of Serum, Toxoid and Vaccine into Muscle, Percutaneous Approach (ICD-10-PCS; 2020-07-20)
PROC: 3E02340 Introduction of Influenza Vaccine into Muscle, Percutaneous Approach (ICD-10-PCS; 2020-07-20)
DX: K80.00 Calculus of gallbladder with acute cholecystitis without obstruction (principal); I25.10 Atherosclerotic heart disease of native coronary artery without angina pectoris; K82.A1 Gangrene of gallbladder in cholecystitis; F41.9 Anxiety disorder, unspecified; Z20.822 Contact with and (suspected) exposure to COVID-19; F32.9 Major depressive disorder, single episode, unspecified; Z79.02 Long term (current) use of antithrombotics/antiplatelets; Z79.82 Long term (current) use of aspirin; Z79.899 Other long term (current) drug therapy; Z82.49 Family history of ischemic heart disease and other diseases of the circulatory system; Z90.49 Acquired absence of other specified parts of digestive tract; Z95.5 Presence of coronary angioplasty implant and graft; Z98.84 Bariatric surgery status; Z23 Encounter for immunization
CPT/HCPCS: 96374; 96375; 96376; 99285; Z7506; Z7508; 36415; 74176; 76700; 80053; 81003; 82948; 83690; 84484; 85025; 85610; 87081; 87635; 90732; 93005; A4215; A4618; A6402; A7000; G0378; J1100; J2001; J2175; J2250; J2270; J2405; J2543; J2704; J2710; J2765; J3010; J3490; J7030; J7120; Q2039

== ENCOUNTER 2020-08-15 12:18 | Emergency (ER) | payer BC ==
[~2020-08-15] VITALS: Ht 182.9 cm; Wt 98.2 kg
[~2020-08-15 12:18] MED LIST changes: +AMOX-580 PO; +GABA-530 PO; +HYDR-3972 PO; +PANT40TA54 PO
[2020-08-15 12:28] VITALS: BP 111/77
[2020-08-15] MEDS ORDERED: LORazepam 1 MG tablet PO ONE (13:30)
== END 2020-08-15 14:03 | disposition home or self-care (01) ==
LOC: ER 12:18
DX: F41.9 Anxiety disorder, unspecified (principal); F32.9 Major depressive disorder, single episode, unspecified; R10.13 Epigastric pain; Z98.890 Other specified postprocedural states; Z79.2 Long term (current) use of antibiotics; Z79.82 Long term (current) use of aspirin; Z79.899 Other long term (current) drug therapy
CPT/HCPCS: 99283

== ENCOUNTER 2020-10-07 08:49 | Inpatient (IN) | payer BC ==
[~2020-10-07] VITALS: Ht 180.3 cm; Wt 97.7 kg
[~2020-10-07 08:49] MED LIST changes: -AMOX-580 PO
[2020-10-07] MEDS ORDERED: mag hydrox/Alum hydrox/simeth 30ml oral suspension PO ONE (09:45)
[2020-10-07] MEDS ORDERED: LIDOcaine Viscous 15ml cup MM ONE (09:45)
[2020-10-07 09:48] LABS: BASOPHILS % (AUTO) 0.6 % (0-1); HEMOGLOBIN 14.7 g/dl (14.0-17.9); LYMPHOCYTES # (AUTO) 0.5 X10'3 (1.1-4.8); NEUTROPHILS # (AUTO) 2.5 X10'3 (1.8-7.7)
[2020-10-07 09:50] LABS: EOSINOPHILS % (AUTO) 0.8 % (0-6); HEMATOCRIT 43.5 % (42.0-52.0); LYMPHOCYTES % (AUTO) 15.9 % (21-51); MEAN CORPUSCULAR HEMOGLOBIN 30.6 PG (27.0-31.0); MEAN CORPUSCULAR HGB CONC 33.7 g/dL (33.0-36.5); MEAN CORPUSCULAR VOLUME 90.7 FL (78-98); MEAN PLATELET VOLUME 8.8 FL (7.4-10.4); MONOCYTES # (AUTO) 0.3 X10'3 (0-0.9); MONOCYTES % (AUTO) 7.4 % (2-12); NEUTROPHILS % (AUTO) 75.3 % (42-75); PLATELET COUNT 161 X10'3 (140-440); RED CELL DISTRIBUTION WIDTH 14.8 % (11.5-14.5); WHITE BLOOD COUNT 3.4 X10'3 (4.5-11.0)
[2020-10-07 10:01] LABS: ALANINE AMINOTRANSFERASE 600 U/L (12-78); ALBUMIN 3.7 G/DL (3.4-5.0); ALKALINE PHOSPHATASE 149 IU/L (46-116); ANION GAP 7 (8-16); ASPARTATE AMINO TRANSFERASE 555 U/L (10-37); BILIRUBIN,TOTAL 4.4 MG/DL (0.1-1.0); BLOOD UREA NITROGEN 15 MG/DL (7-18); BUN/CREATININE RATIO 14.7 (5.4-32.0); CALCIUM 8.9 MG/DL (8.5-10.1); CHLORIDE 106 MMOL/L (99-107); CREATININE 1.02 MG/DL (0.60-1.10); GLUCOSE 92 MG/DL (70-104); SODIUM 141 MMOL/L (135-145); TOTAL CARBON DIOXIDE 27.8 MMOL/L (24-32); eGFR 76 ML/MIN
[2020-10-07 10:07] LABS: LIPASE 108 U/L (73-393)
[2020-10-07 10:08] LABS: ALBUMIN/GLOBULIN RATIO 1.2 (1.1-1.5); TOTAL PROTEIN 6.7 G/DL (6.4-8.2)
[2020-10-07] MEDS ORDERED: aspirin 81mg tab.chew PO ONE (10:20)
--- NOTE | 2020-10-07 10:36 | NUR ---
RELIEVING RN FOR BREAK, PT IS RESTING QUIETLY ON [employer], PLAYING ON PHONE, GABINO PO MED WELL, NO N/V
[2020-10-07] MEDS ORDERED: ondansetron/PF 4mg/2ml inj IV PRN (10:50)
[2020-10-07] MEDS ORDERED: magnesium hydroxide 30ml (MOM) UD suspension PO PRN (10:50)
[2020-10-07] MEDS ORDERED: morphine 2 MG/ML inj. syringe IV PRN ×2 (10:50)
[2020-10-07] MEDS ORDERED: mag hydrox/Alum hydrox/simeth 30ml oral suspension PO PRN (10:50)
[2020-10-07] MEDS ORDERED: nitroGLYCERIN 0.4mg SUBLingual tab SL PRN (10:50)
[2020-10-07] MEDS ORDERED: acetaminophen 325mg tablet PO PRN ×2 (10:50)
[2020-10-07] MEDS ORDERED: HYDROcodone/acetaminophen 5mg/325mg tablet PO PRN (10:50)
[2020-10-07] MEDS ORDERED: HYDROcodone/acetaminophen 10/325mg tab PO PRN (10:50)
[2020-10-07] MEDS: normal saline 1000ml 1,000 ML IV SCH ×2 (11:55→23:04)
[2020-10-07] MEDS: piperacillin/tazo 4.5gm/100ml 100 ML IV SCH ×2 (11:55→23:05)
--- NOTE | 2020-10-07 12:25 | NUR ---
Patient in room PCU 3013. I have received report from CECILE CASTILLO and had the opportunity to ask questions and assume patient care.
--- NOTE | 2020-10-07 12:30 | NUR ---
PT ARRIVED ON THIS UNIT IN ZERO DISTRESS. ASSESSMENT AND VS WHERE COMPLETED AND PT IS POSITIONED FOR COMFORT. CALL LIGHT WITH IN REACH AND ALL QUESTIONS ANSWERED
[2020-10-07 12:45] VITALS: BP 134/80
[2020-10-07] MEDS ORDERED: PROP10TA10 PO (12:45)
[2020-10-07] MEDS ORDERED: BUPR100T6 PO (12:48)
[2020-10-07] MEDS ORDERED: TICA90TA PO (12:48)
[2020-10-07] MEDS ORDERED: TRAZ-256 PO (12:48)
[2020-10-07] MEDS ORDERED: BUSP30TA2 PO (12:48)
[2020-10-07] MEDS ORDERED: ATOR40TA PO (12:48)
[2020-10-07] MEDS ORDERED: ASPI-611 PO (12:48)
[2020-10-07 17:15] VITALS: BP 112/68
[2020-10-07 18:00] VITALS: BP 129/67
[2020-10-07] MEDS: busPIRone 15mg tablet PO SCH (19:37)
[2020-10-07] MEDS: gabapentin 100mg capsule PO SCH (19:37)
[2020-10-07] MEDS: ticagrelor 90mg tablet PO SCH (19:38)
[2020-10-07] MEDS: sertraline 50mg tablet PO SCH (19:38)
[2020-10-07] MEDS: clonazePAM 0.5mg tablet PO SCH (19:48)
[2020-10-07] MEDS ORDERED: clonazePAM 1mg tablet PO SCH (20:00)
[2020-10-07] MEDS: traZODone 50mg tablet PO SCH (20:23)
[2020-10-07 22:00] VITALS: BP 97/54
[2020-10-08] VITALS (7 sets, daily range): BP systolic 95–115; BP diastolic 56–68
--- NOTE | 2020-10-08 06:00 | NUR ---
Patient in room PCU 3013. I have received report from LAVINA CASTILLO and had the opportunity to ask questions and assume patient care.
[2020-10-08] MEDS: normal saline 1000ml 1,000 ML IV SCH ×2 (06:34→16:00)
[2020-10-08 06:45] LABS: BASOPHILS % (AUTO) 0.7 % (0-1); EOSINOPHILS # (AUTO) 0.1 X10'3 (0-0.9); EOSINOPHILS % (AUTO) 2.1 % (0-6); HEMATOCRIT 42.2 % (42.0-52.0); HEMOGLOBIN 14.4 g/dl (14.0-17.9); LYMPHOCYTES # (AUTO) 0.8 X10'3 (1.1-4.8); LYMPHOCYTES % (AUTO) 25.7 % (21-51); MEAN CORPUSCULAR HEMOGLOBIN 30.8 PG (27.0-31.0); MEAN CORPUSCULAR VOLUME 90.5 FL (78-98); MEAN PLATELET VOLUME 8.8 FL (7.4-10.4); MONOCYTES # (AUTO) 0.2 X10'3 (0-0.9); MONOCYTES % (AUTO) 6.7 % (2-12); NEUTROPHILS % (AUTO) 64.8 % (42-75); PLATELET COUNT 134 X10'3 (140-440); RED BLOOD COUNT 4.66 X10'6 (4.70-6.10); RED CELL DISTRIBUTION WIDTH 14.7 % (11.5-14.5); WHITE BLOOD COUNT 3.1 X10'3 (4.5-11.0)
[2020-10-08 07:12] LABS: ALANINE AMINOTRANSFERASE 517 U/L (12-78); ALBUMIN 3.4 G/DL (3.4-5.0); ALBUMIN/GLOBULIN RATIO 1.2 (1.1-1.5); ALKALINE PHOSPHATASE 152 IU/L (46-116); ANION GAP 8 (8-16); ASPARTATE AMINO TRANSFERASE 287 U/L (10-37); BILIRUBIN,TOTAL 2.2 MG/DL (0.1-1.0); BLOOD UREA NITROGEN 14 MG/DL (7-18); CALCIUM 8.4 MG/DL (8.5-10.1); CHLORIDE 108 MMOL/L (99-107); CREATININE 1.17 MG/DL (0.60-1.10); GLUCOSE 68 MG/DL (70-104); POTASSIUM 3.7 MMOL/L (3.5-5.1); SODIUM 142 MMOL/L (135-145); TOTAL CARBON DIOXIDE 25.6 MMOL/L (24-32); TOTAL PROTEIN 6.2 G/DL (6.4-8.2); eGFR 64 ML/MIN
[2020-10-08] MEDS ORDERED: atorvastatin 20mg tablet PO SCH (08:00)
[2020-10-08] MEDS ORDERED: aspirin 81mg tablet.DR PO SCH (08:00)
[2020-10-08] MEDS: ticagrelor 90mg tablet PO SCH ×2 (08:04→19:41)
[2020-10-08] MEDS: buPROPion SR 100mg tab PO SCH (08:04)
[2020-10-08] MEDS: sertraline 50mg tablet PO SCH ×2 (08:04→19:41)
[2020-10-08] MEDS: aspirin 81mg tablet.DR PO SCH (08:04)
[2020-10-08] MEDS: clonazePAM 0.5mg tablet PO SCH ×2 (08:04→19:41)
[2020-10-08] MEDS: gabapentin 100mg capsule PO SCH ×2 (08:04→19:41)
[2020-10-08] MEDS: busPIRone 15mg tablet PO SCH ×2 (08:04→19:41)
[2020-10-08] MEDS: piperacillin/tazo 4.5gm/100ml 100 ML IV SCH ×2 (08:05→16:00)
--- NOTE | 2020-10-08 11:34 | NUR ---
PAGER ID: [phone] MESSAGE: [id number] PIOTR [place], DO YOU MIND PUTTING A DIET IN FOR HIM? MERRILL [phone]
[2020-10-08] MEDS: traZODone 50mg tablet PO SCH (19:40)
[2020-10-09] MEDS: piperacillin/tazo 4.5gm/100ml 100 ML IV SCH ×2 (00:24→08:09)
[2020-10-09 02:00] VITALS: BP 105/55
[2020-10-09] MEDS: normal saline 1000ml 1,000 ML IV SCH (02:34)
--- NOTE | 2020-10-09 06:00 | NUR ---
Patient in room PCU 3013. I have received report from ALVINA CASTILLO and had the opportunity to ask questions and assume patient care.
[2020-10-09 07:15] VITALS: BP 114/61
[2020-10-09 08:06] LABS: BASOPHILS % (AUTO) 0.5 % (0-1); HEMATOCRIT 44.9 % (42.0-52.0); HEMOGLOBIN 14.8 g/dl (14.0-17.9); LYMPHOCYTES # (AUTO) 0.9 X10'3 (1.1-4.8); LYMPHOCYTES % (AUTO) 26.8 % (21-51); MEAN CORPUSCULAR HEMOGLOBIN 30.1 PG (27.0-31.0); MEAN CORPUSCULAR HGB CONC 32.9 g/dL (33.0-36.5); MEAN CORPUSCULAR VOLUME 91.6 FL (78-98); MEAN PLATELET VOLUME 8.8 FL (7.4-10.4); MONOCYTES # (AUTO) 0.3 X10'3 (0-0.9); MONOCYTES % (AUTO) 7.8 % (2-12); NEUTROPHILS # (AUTO) 2.2 X10'3 (1.8-7.7); NEUTROPHILS % (AUTO) 63.9 % (42-75); PLATELET COUNT 136 X10'3 (140-440); RED CELL DISTRIBUTION WIDTH 15.1 % (11.5-14.5); WHITE BLOOD COUNT 3.4 X10'3 (4.5-11.0)
[2020-10-09] MEDS: aspirin 81mg tablet.DR PO SCH (08:08)
[2020-10-09] MEDS: ticagrelor 90mg tablet PO SCH (08:08)
[2020-10-09] MEDS: sertraline 50mg tablet PO SCH (08:08)
[2020-10-09] MEDS: gabapentin 100mg capsule PO SCH (08:08)
[2020-10-09] MEDS: busPIRone 15mg tablet PO SCH (08:08)
[2020-10-09] MEDS: clonazePAM 0.5mg tablet PO SCH (08:08)
[2020-10-09] MEDS: buPROPion SR 100mg tab PO SCH (08:08)
[2020-10-09 08:18] LABS: ALANINE AMINOTRANSFERASE 406 U/L (12-78); ALBUMIN 3.4 G/DL (3.4-5.0); ALBUMIN/GLOBULIN RATIO 1.1 (1.1-1.5); ALKALINE PHOSPHATASE 141 IU/L (46-116); ANION GAP 12 (8-16); ASPARTATE AMINO TRANSFERASE 157 U/L (10-37); BILIRUBIN,TOTAL 1.3 MG/DL (0.1-1.0); BLOOD UREA NITROGEN 10 MG/DL (7-18); BUN/CREATININE RATIO 9.7 (5.4-32.0); CALCIUM 8.8 MG/DL (8.5-10.1); CHLORIDE 107 MMOL/L (99-107); CREATININE 1.03 MG/DL (0.60-1.10); GLUCOSE 84 MG/DL (70-104); POTASSIUM 3.8 MMOL/L (3.5-5.1); SODIUM 142 MMOL/L (135-145); TOTAL CARBON DIOXIDE 23.5 MMOL/L (24-32); TOTAL PROTEIN 6.5 G/DL (6.4-8.2); eGFR 75 ML/MIN
--- NOTE | 2020-10-09 11:25 | NUR ---
PT RECEIVED DISCHARGE INSTRUCTION AND VERBALIZED UNDERSTANDING OF DISCHARGE INSTRUCTIONS. IV AND HEART MONITOR WHERE REMOVED AND PT IS GETTING DRESSED NOW. PT IS IN ZERO DISTRESS AND VERBALIZED THAT HE FEEL SO MUCH BETTER
== END 2020-10-09 11:45 | disposition home or self-care (01) | DRG 444 ==
LOC: ER 08:49 → ED HOLD 10:50 → PCU 3S 12:22
PROVIDERS: ADMIT Internal Medicine; ATTEND Internal Medicine
DX: K80.50 Calculus of bile duct without cholangitis or cholecystitis without obstruction (principal); I21.A1 Myocardial infarction type 2; R74.01 Elevation of levels of liver transaminase levels; E78.5 Hyperlipidemia, unspecified; F32.9 Major depressive disorder, single episode, unspecified; F41.9 Anxiety disorder, unspecified; G47.00 Insomnia, unspecified; N40.0 Benign prostatic hyperplasia without lower urinary tract symptoms; R00.1 Bradycardia, unspecified; I25.10 Atherosclerotic heart disease of native coronary artery without angina pectoris; I25.2 Old myocardial infarction; Z98.84 Bariatric surgery status; Z79.899 Other long term (current) drug therapy; Z90.49 Acquired absence of other specified parts of digestive tract; Z95.5 Presence of coronary angioplasty implant and graft; Z79.02 Long term (current) use of antithrombotics/antiplatelets; Z79.82 Long term (current) use of aspirin
CPT/HCPCS: 36415; 71045; 74176; 74181; 80053; 83690; 83880; 84484; 85025; 87081; 93005; 99285; G0378; J2543; J7030

== ENCOUNTER 2020-11-20 16:06 | Emergency (ER) | payer BC ==
[~2020-11-20] VITALS: Ht 180.3 cm; Wt 100.0 kg
[~2020-11-20 16:06] MED LIST changes: -ASPI-1071 PO; +ASPI-611 PO; -ATOR40TA71 PO; +BUPR100T6 PO; +BUSP30TA2 PO; -DESV25TA2 PO; -HYDR-3972 PO; -PANT40TA54 PO; +PROP10TA10 PO; +TRAZ-256 PO; -ZIPR20CA12 PO; -ZOLP12.543 PO
[2020-11-20 17:00] LABS: BASOPHILS % (AUTO) 0.5 % (0-1); EOSINOPHILS % (AUTO) 0.4 % (0-6); HEMATOCRIT 40.9 % (42.0-52.0); HEMOGLOBIN 13.9 g/dl (14.0-17.9); LYMPHOCYTES # (AUTO) 1.4 X10'3 (1.1-4.8); LYMPHOCYTES % (AUTO) 22.1 % (21-51); MEAN CORPUSCULAR HEMOGLOBIN 30.2 PG (27.0-31.0); MEAN CORPUSCULAR HGB CONC 33.9 g/dL (33.0-36.5); MEAN CORPUSCULAR VOLUME 89.2 FL (78-98); MEAN PLATELET VOLUME 7.8 FL (7.4-10.4); MONOCYTES # (AUTO) 0.4 X10'3 (0-0.9); MONOCYTES % (AUTO) 6.4 % (2-12); NEUTROPHILS # (AUTO) 4.4 X10'3 (1.8-7.7); NEUTROPHILS % (AUTO) 70.6 % (42-75); PLATELET COUNT 172 X10'3 (140-440); RED BLOOD COUNT 4.58 X10'6 (4.70-6.10); RED CELL DISTRIBUTION WIDTH 14.6 % (11.5-14.5); WHITE BLOOD COUNT 6.2 X10'3 (4.5-11.0)
[2020-11-20 17:14] LABS: ALANINE AMINOTRANSFERASE 35 U/L (12-78); ALBUMIN 3.6 G/DL (3.4-5.0); ALBUMIN/GLOBULIN RATIO 1.2 (1.1-1.5); ALKALINE PHOSPHATASE 53 IU/L (46-116); ANION GAP 7 (8-16); ASPARTATE AMINO TRANSFERASE 23 U/L (10-37); BILIRUBIN,TOTAL 0.5 MG/DL (0.1-1.0); BLOOD UREA NITROGEN 20 MG/DL (7-18); BUN/CREATININE RATIO 21.7 (5.4-32.0); CALCIUM 8.5 MG/DL (8.5-10.1); CHLORIDE 106 MMOL/L (99-107); CREATININE 0.92 MG/DL (0.60-1.10); GLUCOSE 84 MG/DL (70-104); SODIUM 141 MMOL/L (135-145); TOTAL CARBON DIOXIDE 28.5 MMOL/L (24-32); TOTAL PROTEIN 6.5 G/DL (6.4-8.2); eGFR 85 ML/MIN
[2020-11-20 17:24] LABS: ACETAMINOPHEN < 2.0 UG/ML (10-30); ETHANOL < 0.010 GM/DL (0.0-0.010)
[2020-11-20 19:29] LABS: CLARITY,URINE CLEAR (Clear); COLOR,URINE YELLOW (Yellow); GLUCOSE, URINE NEGATIVE (Neg); KETONES,URINE NEGATIVE (Neg); LEUKOCYTE ESTERASE ,URINE NEGATIVE (Neg); NITRITES, URINE NEGATIVE (Neg); OCCULT BLOOD,URINE NEGATIVE (Neg); PH,URINE 6.5 (4.8-8.0); PROTEIN,URINE NEGATIVE (Neg); UROBILINOGEN,URINE 0.2 E.U/dL (0.2-1.0)
[2020-11-20 19:31] LABS: UA COLLECTION TYPE CLN CATCH MIDSTREAM
[2020-11-20 19:32] LABS: URINE AMPHETAMINE SCREEN NEGATIVE (Neg); URINE BARBITUATE SCREEN NEGATIVE (Neg); URINE BENZODIAZEPINES SCREEN NEGATIVE (Neg); URINE CANNABINOID SCREEN POSITIVE (Neg); URINE COCAINE SCREEN NEGATIVE (Neg); URINE METHADONE SCREEN NEGATIVE (Neg); URINE OPIATE SCREEN NEGATIVE (Neg); URINE PHENCYCLIDINE SCREEN NEGATIVE (Neg)
[2020-11-20] MEDS ORDERED: ATOR40TA72 PO (20:27)
[2020-11-21] MEDS ORDERED: clonazePAM 1mg tablet PO SCH (08:00)
[2020-11-21] MEDS ORDERED: propranolol 10mg tablet PO SCH (08:00)
[2020-11-21] MEDS ORDERED: buPROPion SR 100mg tab PO SCH (08:00)
--- NOTE | 2020-11-21 08:00 | NUR ---
Received patient from main ED. Pt ambulated independently with PCT and security. Pt was placed in bed #25. Pt is calm and cooperative. A warm blanket was given to pt
[2020-11-21] MEDS ORDERED: hyDROXYzine 50 mg/ml injection ***IM only IM ONE (08:15)
--- NOTE | 2020-11-21 09:05 | NUR ---
One to one with patient to assess mental health symptoms. Pt was tearful, states he didnt' receive his HS medications last night. Pt reports moderate level of anxiety. Pt is restless, wringing hands and pushing back hair with hands. Pt states he was taken off of Ativan and Klonopin "I was taking too much and weaned off." Pt has lost both parents in the last year. Pt's son has been battling his own mental health issues that the family has been dealing with. Pt reports depression and suicidal thoughts. Pt becomes distraught "I don't want to , but if I go home I know I will!" "I just want this pain to stop." "Am I going to get better?" Pt denies A/VH. Will talk to provider for PRN r/t anxiety
[2020-11-21] MEDS: atorvastatin 20mg tablet PO SCH (09:30)
[2020-11-21] MEDS: gabapentin 100mg capsule PO SCH ×2 (09:30→19:42)
[2020-11-21] MEDS: ticagrelor 90mg tablet PO SCH ×2 (09:31→19:42)
[2020-11-21] MEDS: sertraline 50mg tablet PO SCH ×2 (09:31→19:43)
[2020-11-21] MEDS: busPIRone 15mg tablet PO SCH ×2 (09:31→19:43)
[2020-11-21] MEDS: aspirin 81mg tablet.DR PO SCH (09:31)
[2020-11-21] MEDS ORDERED: QUETIAPINE 200 MG TAB.SR.24H PO ONE (10:30)
--- NOTE | 2020-11-21 10:30 | NUR ---
Pt was administered IM 25mg Hydroxizine with minimal effect. Pt no longer taking benzos and continues to report anxiety. Received order for Seroquel 200 mg.
[2020-11-21] MEDS ORDERED: QUETIAPINE 50 MG TAB.SR.24H PO ONE (10:45)
--- NOTE | 2020-11-21 10:55 | NUR ---
Administered PO Seroquel 200mg. Pt reports anxiety 01/07. Will continue to monitor anxiety level.
--- NOTE | 2020-11-21 12:22 | NUR ---
Pt resting comfortably, woke when RN spoke with at bedside. Pt states his anxiety is "a 7 or 8," but objectively anxiety appears less. Pt's affect is calm, pt does not look as intense and is lying comfortably on right side.
--- NOTE | 2020-11-21 15:03 | NUR ---
Patient resting comfortably, repirations even and unlabored. Pt's and his sister are at bedside.
[2020-11-21] MEDS ORDERED: QUEtiapine 25mg tablet PO ONE (15:15)
--- NOTE | 2020-11-21 16:49 | NUR ---
Pt appears to be resting comfortably on left side, respirations even and unlabored. at bedside.
--- NOTE | 2020-11-21 19:04 | NUR ---
ELADIO: [phone].
--- NOTE | 2020-11-21 19:05 | NUR ---
and sister at bedside. Patient requesting to clean himself up. Hygiene items given to patient for bath. New pajamas provided. Linen changed. Plan of care discussed with patient and his family.
[2020-11-21] MEDS ORDERED: FLUV50TA3 PO (19:47)
[2020-11-21] MEDS: fluvoxamine 25 MG tablet PO SCH (20:48)
[2020-11-21] MEDS: traZODone 50mg tablet PO SCH (20:49)
--- NOTE | 2020-11-22 07:45 | NUR ---
Received patient sleeping, no distess noted. Respirations even and unlabored.
[2020-11-22] MEDS: ticagrelor 90mg tablet PO SCH ×2 (08:42→20:41)
[2020-11-22] MEDS: gabapentin 100mg capsule PO SCH ×2 (08:43→20:41)
[2020-11-22] MEDS: sertraline 50mg tablet PO SCH ×2 (08:43→20:41)
[2020-11-22] MEDS: atorvastatin 20mg tablet PO SCH (08:43)
[2020-11-22] MEDS: busPIRone 15mg tablet PO SCH ×2 (08:43→20:40)
[2020-11-22] MEDS: aspirin 81mg tablet.DR PO SCH (08:43)
[2020-11-22] MEDS ORDERED: QUETIAPINE 200 MG TAB.SR.24H PO ONE (09:50)
--- NOTE | 2020-11-22 09:51 | NUR ---
Patient sitting up in bed, pt's and sister are at bedside. Pt was compliant with 1:1 assessment. Pt continues to endorse suicidal thoughts and anxiety. When asked if he has a plan pt becomes distraught. Pt denies A/VH. Placement is pending. Pt's affect is very constricted. Pt ate 25% of his breakfast states he has "no appetite." Pt has a tormented affect.
[2020-11-22] MEDS ORDERED: QUETIAPINE 50 MG TAB.SR.24H PO ONE (10:00)
--- NOTE | 2020-11-22 10:00 | NUR ---
Administered order for Seroquel 200 mg XR.
--- NOTE | 2020-11-22 11:27 | NUR ---
Pt resting comfortably with eyes closed, no distress noted. Sister is at bedside.
--- NOTE | 2020-11-22 12:34 | NUR ---
Spoke with intake staff Jaden at [facility]. Updated information was given for possible placment.
--- NOTE | 2020-11-22 13:27 | NUR ---
Received phone call from [facility]. Pt has been accepted at [facility]. Pt calm and cooperative in his bed. Agnes is at bedside.
--- NOTE | 2020-11-22 13:42 | NUR ---
Nurse to nurse report given to Pam [facility].
--- NOTE | 2020-11-22 13:44 | NUR ---
Pt awake lying on his bed, at bedside. Pt aware of acceptance to [facility], [place]. Pt remains calm/cooperative. Pt is guarded.
--- NOTE | 2020-11-22 15:45 | NUR ---
Pt is awake, voices apprehension about transfer. Pt is worried because isn't able to visit due to Covid precautions. Then begins asking "why, why do I have to wait for tomorrow." Pt calms down after therapeutic communication.
--- NOTE | 2020-11-22 19:00 | NUR ---
Per [facility] office the patient has been accepted at [facility], [address] [place] [address]. The number is [phone]. Accepting MD is Dr. Alejandre. He will be picked up between 0700 and 0715
[2020-11-22] MEDS: fluvoxamine 25 MG tablet PO SCH (20:40)
[2020-11-22] MEDS: traZODone 50mg tablet PO SCH (20:41)
[2020-11-22] MEDS ORDERED: traZODone 50mg tablet PO ONE (20:50)
--- NOTE | 2020-11-22 20:55 | NUR ---
Yodit MACIAS made aware that the patient and the patient's report that his home dose of trazodone is 300mg and orders received for an additional 100mg to be given. Med rec reflects changes to HS trazodone.
--- NOTE | 2020-11-22 21:03 | NUR ---
Note carlopatti in ED - 11/22/20 at 2112 by RILEY The patient resting on his bed and his is also at the bedside and persents as loving, encouraging and supportive. The patient is very helpless and hopeless. He reports his anxiety is very high. He stated, "I feel like this is never going to end" He reports his appetite is very poor and he ate only a few bites of his dinner. He is aware that he will be transferred tomorrow. His phone was sent home with his .
--- NOTE | 2020-11-22 21:08 | NUR ---
One to one with the patient to assess severity of depressive symptoms and self harm risk. The patient's is also at the bedside and presents as loving, encouraging and supportive. He reports he feels complete despair and added, "I feel like this is never going to end" He reports that his appetite is very poor and he only ate a few bites of his dinner. He also reports is concentration and focus. He is aware that he will be transferred tomorrow.
--- NOTE | 2020-11-22 23:17 | NUR ---
The patient appears to be sleeping
--- NOTE | 2020-11-23 00:51 | NUR ---
The patient appears to be sleeping
--- NOTE | 2020-11-23 02:01 | NUR ---
The patient appears to be sleeping
--- NOTE | 2020-11-23 02:52 | NUR ---
The patient appears to be sleeping
--- NOTE | 2020-11-23 04:35 | NUR ---
The patient appears to be sleeping
[2020-11-23 05:54] VITALS: BP 136/79
[2020-11-23] MEDS: aspirin 81mg tablet.DR PO SCH (07:11)
[2020-11-23] MEDS: busPIRone 15mg tablet PO SCH (07:11)
[2020-11-23] MEDS: gabapentin 100mg capsule PO SCH (07:11)
[2020-11-23] MEDS: atorvastatin 20mg tablet PO SCH (07:11)
[2020-11-23] MEDS: sertraline 50mg tablet PO SCH (07:11)
[2020-11-23] MEDS: ticagrelor 90mg tablet PO SCH (07:24)
--- NOTE | 2020-11-23 07:31 | NUR ---
Pt being picked up by interstate bus driver for transport to [facility] inpatient facility. Home med Brilinta retrieved from pharmacy and given to interstate bus driver. Dose given this am. All belongings with interstate bus driver. Verified with that she took his wallet and cell phone home with her. Escorted with interstate bus driver and security staff.
== END 2020-11-23 07:48 ==
LOC: ER 16:07
DX: R45.851 Suicidal ideations (principal); F32.9 Major depressive disorder, single episode, unspecified; I11.9 Hypertensive heart disease without heart failure; F41.9 Anxiety disorder, unspecified; Z20.822 Contact with and (suspected) exposure to COVID-19
CPT/HCPCS: 36415; 80053; 80305; 80320; 80329; 81003; 84443; 85025; 87635; 99285; C9803; J3410

== ENCOUNTER 2020-12-01 16:16 | Emergency (ER) | payer BC ==
[~2020-12-01] VITALS: Ht 180.3 cm; Wt 94.5 kg
[~2020-12-01 16:16] MED LIST changes: +ATOR40TA72 PO; +FLUV50TA3 PO
[2020-12-01 17:01] LABS: BASOPHILS % (AUTO) 0.5 % (0-1); EOSINOPHILS % (AUTO) 0.2 % (0-6); HEMATOCRIT 45.4 % (42.0-52.0); HEMOGLOBIN 15.4 g/dl (14.0-17.9); LYMPHOCYTES # (AUTO) 1.4 X10'3 (1.1-4.8); LYMPHOCYTES % (AUTO) 20.4 % (21-51); MEAN CORPUSCULAR HEMOGLOBIN 30.8 PG (27.0-31.0); MEAN CORPUSCULAR HGB CONC 33.9 g/dL (33.0-36.5); MEAN CORPUSCULAR VOLUME 90.8 FL (78-98); MEAN PLATELET VOLUME 8.1 FL (7.4-10.4); MONOCYTES # (AUTO) 0.6 X10'3 (0-0.9); MONOCYTES % (AUTO) 8.1 % (2-12); NEUTROPHILS % (AUTO) 70.8 % (42-75); PLATELET COUNT 229 X10'3 (140-440); RED CELL DISTRIBUTION WIDTH 14.4 % (11.5-14.5)
[2020-12-01 17:15] LABS: ALANINE AMINOTRANSFERASE 33 U/L (12-78); ALBUMIN 4.3 G/DL (3.4-5.0); ALBUMIN/GLOBULIN RATIO 1.4 (1.1-1.5); ALKALINE PHOSPHATASE 61 IU/L (46-116); ANION GAP 4 (8-16); ASPARTATE AMINO TRANSFERASE 21 U/L (10-37); BILIRUBIN,TOTAL 0.8 MG/DL (0.1-1.0); BLOOD UREA NITROGEN 25 MG/DL (7-18); BUN/CREATININE RATIO 22.3 (5.4-32.0); CHLORIDE 106 MMOL/L (99-107); CREATININE 1.12 MG/DL (0.60-1.10); GLUCOSE 123 MG/DL (70-104); POTASSIUM 4.1 MMOL/L (3.5-5.1); SODIUM 139 MMOL/L (135-145); TOTAL CARBON DIOXIDE 28.7 MMOL/L (24-32); TOTAL PROTEIN 7.3 G/DL (6.4-8.2); eGFR 68 ML/MIN
[2020-12-01] MEDS ORDERED: AMLO2.5T2 PO (22:19)
[2020-12-01 22:37] VITALS: BP 145/100
== END 2020-12-01 22:41 | disposition home or self-care (01) ==
LOC: ER 16:17
DX: I10 Essential (primary) hypertension (principal); R07.89 Other chest pain; I25.2 Old myocardial infarction; F41.9 Anxiety disorder, unspecified; F32.9 Major depressive disorder, single episode, unspecified; Z98.890 Other specified postprocedural states; Z95.1 Presence of aortocoronary bypass graft; Z79.82 Long term (current) use of aspirin; Z79.899 Other long term (current) drug therapy
CPT/HCPCS: 36415; 71045; 80053; 83880; 84484; 85025; 93005; 99285

== ENCOUNTER 2022-10-16 06:18 | Emergency (ER) | payer BC ==
[~2022-10-16] VITALS: Ht 172.7 cm; Wt 90.9 kg
[~2022-10-16 06:18] MED LIST changes: +BUPR-113 PO; -BUPR100T6 PO; +FLUV50TA24 PO; -FLUV50TA3 PO
[2022-10-16 06:27] VITALS: BP 138/86
[2022-10-16 06:43] LABS: BASOPHILS % (AUTO) 0.8 % (0-1); EOSINOPHILS # (AUTO) 0.1 X10'3 (0-0.9); EOSINOPHILS % (AUTO) 1.7 % (0-6); HEMATOCRIT 42.5 % (42.0-52.0); HEMOGLOBIN 14.3 g/dl (14.0-17.9); LYMPHOCYTES # (AUTO) 1.7 X10'3 (1.1-4.8); LYMPHOCYTES % (AUTO) 43.7 % (21-51); MEAN CORPUSCULAR HEMOGLOBIN 30.2 PG (27.0-31.0); MEAN CORPUSCULAR HGB CONC 33.5 g/dL (33.0-36.5); MEAN CORPUSCULAR VOLUME 90.1 FL (78-98); MEAN PLATELET VOLUME 8.1 FL (7.4-10.4); MONOCYTES # (AUTO) 0.3 X10'3 (0-0.9); MONOCYTES % (AUTO) 8.5 % (2-12); NEUTROPHILS # (AUTO) 1.8 X10'3 (1.8-7.7); NEUTROPHILS % (AUTO) 45.3 % (42-75); PLATELET COUNT 195 X10'3 (140-440); RED BLOOD COUNT 4.72 X10'6 (4.70-6.10); RED CELL DISTRIBUTION WIDTH 13.8 % (11.5-14.5); WHITE BLOOD COUNT 3.9 X10'3 (4.5-11.0)
[2022-10-16 06:54] LABS: APTT 30 SECONDS (22-32)
[2022-10-16 07:02] LABS: ALANINE AMINOTRANSFERASE 24 U/L (12-78); ALBUMIN 3.6 G/DL (3.4-5.0); ALBUMIN/GLOBULIN RATIO 1.2 (1.1-1.5); ALKALINE PHOSPHATASE 56 IU/L (46-116); ANION GAP 8 (8-16); ASPARTATE AMINO TRANSFERASE 28 U/L (10-37); BILIRUBIN,TOTAL 0.6 MG/DL (0.1-1.0); BLOOD UREA NITROGEN 12 MG/DL (7-18); BUN/CREATININE RATIO 11.5 (10.0-20.0); CALCIUM 8.5 MG/DL (8.5-10.1); CHLORIDE 105 MMOL/L (99-107); CREATININE 1.04 MG/DL (0.60-1.10); GLUCOSE 111 MG/DL (70-104); POTASSIUM 4.1 MMOL/L (3.5-5.1); SODIUM 140 MMOL/L (135-145); TOTAL CARBON DIOXIDE 27.3 MMOL/L (24-32); TOTAL PROTEIN 6.6 G/DL (6.4-8.2); eGFR 73 ML/MIN
== END 2022-10-16 07:34 | disposition home or self-care (01) ==
LOC: ER 06:18
DX: R07.89 Other chest pain (principal); I10 Essential (primary) hypertension
CPT/HCPCS: 36415; 71045; 80053; 83880; 84484; 85025; 85610; 85730; 93005; 99285